=== PATIENT | female | born 1995 | race Caucasian/White ===

== ENCOUNTER 2018-11-17 12:36 | Day surgery (SDC) | payer BC ==
[2018-11-17 13:54] LABS: ADD MAN DIFF? NO
[2018-11-17 13:55] LABS: WHITE BLOOD COUNT 8.4 10^3/ul (4.8-10.8)
[2018-11-17 13:55] LABS: BASOPHILS % 0.5 % (0.0-2.0); EOSINOPHILS # 0.2 10^3/ul (0.0-0.5); EOSINOPHILS % 2.7 % (0.0-7.0); HEMATOCRIT 37.3 % (37.0-47.0); HEMOGLOBIN 12.3 g/dl (12.0-16.0); LYMPHOCYTES # 1.9 10^3/ul (0.8-2.9); LYMPHOCYTES % 22.5 % (15.0-51.0); MEAN CORPUSCULAR HEMOGLOBIN 28.2 pg (29.0-33.0); MEAN CORPUSCULAR VOLUME 85.6 fl (82.0-101.0); MEAN PLATELET VOLUME 10.6 fl (7.4-10.4); MONOCYTE # 0.5 10^3/ul (0.3-0.9); MONOCYTES % 6.2 % (0.0-11.0); NEUTROPHIL # 5.7 10^3/ul (1.6-7.5); NEUTROPHILS % 67.7 % (39.0-77.0); PLATELET COUNT 253 10^3/UL (140-415); RED BLOOD COUNT 4.36 10^6/ul (4.20-5.40); RED CELL DISTRIBUTION WIDTH 12.6 % (11.5-14.5)
[2018-11-17] MEDS: LACTATED RINGER'S 1,000 ML IV (14:01)
[2018-11-17] MEDS ORDERED: CEFAZOLIN 1 GM INJ (14:40)
[2018-11-17] MEDS ORDERED: PROPOFOL 20 ML (14:40)
[2018-11-17] MEDS ORDERED: MIDAZOLAM 1 MG/ML 2 ML INJ (14:40)
[2018-11-17] MEDS ORDERED: FENTAnyl 50 MCG/ML VIAL (14:40)
[2018-11-17] MEDS ORDERED: ROCURONIUM 50 MG INJ (14:40)
[2018-11-17] MEDS ORDERED: DESFLURANE 15 MIN (14:40)
[2018-11-17] MEDS ORDERED: LIDOCAINE 2% (SDV) 5 ML INJ (14:40)
[2018-11-17] MEDS ORDERED: HYDROmorphONE 1 MG/5 ML IV SYRINGE IV ×3 (15:00)
[2018-11-17] MEDS ORDERED: DEXAMETHASONE 4 MG/ML 5 ML INJ (15:10)
[2018-11-17] MEDS ORDERED: ONDANSETRON 4 MG INJ ×2 (15:10→16:18)
[2018-11-17] MEDS ORDERED: LABETALOL HCL 20MG INJ (15:24)
[2018-11-17] MEDS ORDERED: SUGAMMADEX SODIUM 200 MG/2 ML VIAL IV (15:31)
[2018-11-17] MEDS: ONDANSETRON 4 MG INJ IV (16:27)
[2018-11-17] MEDS ORDERED: METOCLOPRAMIDE 10 MG INJ IV (16:30)
== END 2018-11-17 17:38 | disposition home or self-care (01) ==
LOC: SDS 12:36
DX: J35.01 Chronic tonsillitis (principal); E66.01 Morbid (severe) obesity due to excess calories; Z68.42 Body mass index [BMI] 45.0-49.9, adult
CPT/HCPCS: 42826; 84703; 85025; 88300